=== PATIENT | female | born 1985 | race Caucasian/White ===

== ENCOUNTER 2019-06-29 09:22 | Emergency (ER) | payer BC ==
--- NOTE | 2019-06-29 11:03 | ED ---
Lower Extremity - HPI Summary HPI Summary: Pt. is a 34 y.o female who presents to the ER for right low back pain that radiates in right leg x several days. Pt. denies injury or falls. States she has been icing and taking motrin without improvement. Pt. notes two friends needed to help her out of bed this morning secondary to pain. Denies numbness, tingling or weakness. Denies bowel or bladder incontinence or retention. Denies fever, abd. pain, N/V, urinary sxs. - History of Current Complaint Chief Complaint: EDHipPelvisInjury Stated Complaint: SCIATIC PAIN PER PT Time Seen by Provider: 06/29/19 09:35 Hx Obtained From: Patient Pain Intensity: 7 - Allergies/Home Medications Allergies/Adverse Reactions: Allergies Allergy/AdvReac Type Severity Reaction Status Date / Time No Known Allergies Allergy Verified 06/29/19 09:31 PMH/Surg Hx/FS Hx/Imm Hx Previously Healthy: Yes Infectious Disease History: No Infectious Disease History: Denies: Traveled Outside the in Last 30 Days - Family History Known Family History: Positive: Non-Contributory - Social History Occupation: Employed Full-time Lives: With Family Alcohol Use: Rare Substance Use Type: Reports: None Smoking Status (MU): Never Smoked Tobacco Review of Systems Constitutional: Negative Negative: Fever Cardiovascular: Negative Respiratory: Negative Gastrointestinal: Negative Negative: Abdominal Pain Genitourinary: Negative Negative: dysuria Positive: Other - Right low back and buttocks pain Skin: Negative Negative: Weakness, Paresthesia, Numbness All Other Systems Reviewed And Are Negative: Yes Physical Exam Triage Information Reviewed: Yes Vital Signs On Initial Exam: Initial Vitals Temp Pulse Resp BP Pulse Ox 98.6 F 83 18 121/84 99 06/29/19 09:24 06/29/19 09:24 06/29/19 09:24 06/29/19 09:24 06/29/19 09:24 Vital Signs Reviewed: Yes Appearance: Positive: Well-Appearing - Pt. lying on bed in NAD. Skin: Positive: Warm, Dry Head/Face: Positive: Normal Head/Face Inspection Eyes: Positive: Normal, EOMI Neck: Positive: Supple Musculoskeletal: Positive: Other - 5/5 strength in bilateral LEs with flexion and dorsiflexion. Negative straight leg test. Pain to right sciatic notch. No midline tenderness. Neurological: Positive: Normal, CN Intact II-III Diagnostics - Vital Signs Vital Signs Temp Pulse Resp BP Pulse Ox 06/29/19 09:24 98.6 F 83 18 121/84 99 - Laboratory Lab Statement: Any lab studies that have been ordered have been reviewed, and results considered in the medical decision making process. Lower Extremity Course/Dx - Course Course Of Treatment: Pt.'s exam most consistent with sciatica. [employer]ATOR reviewed. Will rx 2 days of lortab and flexeril. Advised warm compresses and stretching. Will f.u with the [facility]. To return to ER if sxs change or worsen. Pt. understands and agrees with plan. - Diagnoses Differential Diagnosis/HQI/PQRI: Positive: Sciatica, Sprain, Strain Provider Diagnoses: Sciatica Discharge ED - Sign-Out/Discharge Documenting (check all that apply): Patient Departure Patient Received Moderate/Deep Sedation with Procedure: No - Discharge Plan Condition: Good Disposition: HOME Prescriptions: Cyclobenzaprine TAB* [Flexeril 10 MG TAB*] 10 mg PO TID PRN #9 tab PRN Reason: Pain - Moderate Hydrocodone/Acetaminophen [Hydrocodone/Acetaminophen 5-325 mg] 1 tab PO Q6H #12 tab MDD 4 Patient Education Materials: Sciatica (ED), Lower Back Exercises (ED) Referrals: [facility] [Outside] [facility] [Outside] [facility] [Outside] Additional Instructions: Schedule a follow up appointment with [facility] Take medication as directed Apply warm compresses Gentle stretching and massage Return to ER if symptoms change or worsen - Billing Disposition and Condition Condition: GOOD Disposition: Home
[2019-06-29 11:18] VITALS: BP 124/82
== END 2019-06-29 11:17 | disposition home or self-care (01) ==
LOC: ED 09:22
DX: M54.30 Sciatica, unspecified side (principal); Z79.899 Other long term (current) drug therapy
CPT/HCPCS: 99282